=== PATIENT | female | born 1940 | race Two or more races ===

== ENCOUNTER → 2021-03-04 | Emergency (ER) | payer OTHER ==
[~2021-03-04] VITALS: Ht 152.4 cm; Wt 77.1 kg
== END | disposition home or self-care (01) ==
LOC: ER 13:20
DX: S40.011A Contusion of right shoulder, initial encounter (principal); S60.211A Contusion of right wrist, initial encounter; S50.11XA Contusion of right forearm, initial encounter; W18.39XA Other fall on same level, initial encounter; Y93.89 Activity, other specified; Y92.098 Other place in other non-institutional residence as the place of occurrence of the external cause; Y99.8 Other external cause status

== ENCOUNTER 2023-07-25 20:38 | Emergency (ER) | payer OTHER ==
[~2023-07-25] VITALS: Ht 160 cm; Wt 68.0 kg
[2023-07-26] MEDS ORDERED: HYOSCYAMINE SULFATE 0.125 MG TAB.SUBL SL ONE (00:15)
[2023-07-26] MEDS ORDERED: PROMETHAZINE HCL 25 MG/ML AMPUL IM STA (00:16)
[2023-07-26] MEDS ORDERED: MEPERIDINE HCL/PF 25 MG/ML VIAL IM STA (00:16)
[2023-07-26] MEDS ORDERED: ONDANSETRON HCL 2 MG/ML VIAL IV STA (00:17)
[2023-07-26 00:47] LABS: HEMATOCRIT 38.5 % (36.0-45.00); MEAN CELL VOLUME 89.9 fL (80.00-100.00); MEAN CORPUSCULAR HEMOGLOBIN 30.4 pg (27.00-32.0); MEAN CORPUSCULAR HGB CONC 33.8 g/dl (32.0-36.0); PLATELET COUNT 177 K/uL (150-450); RED BLOOD COUNT 4.29 M/uL (4.00-6.00)
[2023-07-26 01:10] LABS: ALBUMIN 3.2 gm/dL (3.4-5.0); BILIRUBIN TOTAL 0.83 mg/dL (0.3-1.2); CALCIUM 8.9 mg/dL (8.5-10.1); CREATININE SERUM 0.67 mg/dL (0.55-1.02); GFR 84.69; GLOBULINA 3.9 G/DL (2.4-3.5); POTASSIUM 4.13 mEq/L (3.5-5.1); TOTAL PROTEIN 7.1 gm/dL (6.4-8.2)
[2023-07-26 01:27] LABS: INR 0.98; PARTIAL THROMBOPLASTIN TIME 28.7 SECONDS (22.0-34.0); PROTHROMBIN TIME 10.3 SECONDS (9.0-11.5)
[2023-07-26 01:51] LABS: URINE APPEARANCE Clear; URINE BILIRRUBIN Negative (NEGATIVE); URINE BLOOD Negative; URINE COLOR Yellow; URINE GLUCOSE Negative (NEGATIVE); URINE LEUKOCYTE Small; URINE NITRATE Negative; URINE PROTEIN Negative (NEGATIVE)
[2023-07-26 01:54] LABS: URINE BACTERIA 30.2 uL (0.0-1933); URINE EPITHELIAL CELLS 4.1 uL (0.0-38.8); URINE RBC 2.2 uL (0.0-20.8); URINE WBC 39.3 uL (0.0-23.2)
[2023-07-26] MEDS ORDERED: DICYCLOMINE HCL 20 MG TABLET PO STA (04:42)
== END 2023-07-26 06:54 | disposition home or self-care (01) ==
LOC: ER 20:39
DX: R14.3 Flatulence (principal); R14.1 Gas pain; R14.2 Eructation; K57.30 Diverticulosis of large intestine without perforation or abscess without bleeding; K59.00 Constipation, unspecified; K43.9 Ventral hernia without obstruction or gangrene
CPT/HCPCS: 36415; 96365; 96372; 99284; J2250; J2405; J3490; Q9965